=== PATIENT | male | born 1990 | race Caucasian/White ===

== ENCOUNTER 2020-01-25 15:05 | Outpatient (CLI) | payer BC, SELFPAY ==
[2020-01-25 15:23] LABS: Hematocrit 47.2 % (42.0-52.0); Hemoglobin 16.1 g/dL (11.7-16.6)
== END 2020-01-25 15:06 | disposition home or self-care (01) ==
LOC: LAB 15:09
PROVIDERS: PCP Family Medicine; Visit Provider Surgery
DX: D64.9 Anemia, unspecified (principal)
CPT/HCPCS: 36415; 85014; 85018